=== PATIENT | female | born 1965 | race Caucasian/White ===

== ENCOUNTER 2018-08-11 12:48 | Outpatient (CLI) | payer OTHER ==
--- NOTE | 2018-08-11 13:24 | RAD ---
PA AND LATERAL CHEST: Date: 08/11/18 HISTORY: Dyspnea. FINDINGS: Cardiac silhouette and pulmonary vasculature are within normal limits. The lungs are clear. Osseous s tructures are intact. IMPRESSION: No acute cardiopulmonary process. POS: SUSANNAHH
== END 2018-08-11 12:49 | disposition home or self-care (01) ==
LOC: RAD 12:48
PROVIDERS: ATTEND Internal Medicine Critical Care Medicine
DX: R06.00 Dyspnea, unspecified (principal)
CPT/HCPCS: 71046

== ENCOUNTER 2018-09-08 09:22 | Outpatient (CLI) | payer OTHER | END 2018-09-08 09:23 | disposition home or self-care (01) | LOC: CP 09:22 | PROVIDERS: ATTEND Internal Medicine Critical Care Medicine | DX: J44.9 Chronic obstructive pulmonary disease, unspecified (principal) | CPT/HCPCS: 94060; 94727; 94729 ==

== ENCOUNTER 2019-09-12 08:44 | Outpatient (CLI) | payer OTHER ==
--- NOTE | 2019-09-12 09:00 | RAD ---
2 views of the chest: 09/12/2019 COMPARISON: 08/11/2018 HISTORY: Difficulty breathing FINDINGS: The lungs are clear. Heart and mediastinal contours are grossly unremarkable. IMPRESSION: No acute findings.
== END 2019-09-12 08:45 | disposition home or self-care (01) ==
LOC: RAD 08:44
PROVIDERS: ATTEND Internal Medicine Critical Care Medicine
DX: R06.00 Dyspnea, unspecified (principal)
CPT/HCPCS: 71046